=== PATIENT | female | born 1990 | race African-American/Black ===

== ENCOUNTER 2022-07-28 12:15 | Emergency (ER) | payer OTHER ==
--- OUTSIDE RECORDS SUMMARY | 2022-07-28 12:38 | XMS REPORT | Continuity of Care Document ---
:1990 Author Organization [facility] t Address [address] [place] [place] [address] Care Team Providers Name Role Phone Pcp, Patient Does Not Have A Primary Care Physician [phone] Emerson Rubio Attending Clinician Unavailable Pcp, Patient Does Not Have A Attending Clinician [phone] Vida Valenzuela RN Attending Clinician Unavailable Soha Green Attending Clinician Soha MONREAL Attending Clinician Unavailable Cecy Son Attending Clinician CECY HAMMONDS Attending Clinician Unavailable Doctor Unassigned, [place] Attending Clinician Unavailable Emerson Rubio Admitting Clinician Unavailable Physician, No Primary or Family Admitting Clinician Unavaila ble Payers Payer Name Policy Type Policy Number Effective Date Expiration Date S ource Problems Condition Condition Condition Status Onset Resolution Last Treating Co mments Source Name Details Category Date Date Treatment Clinician Date Chlamydia Chlamydia Disease Active Uni vers trachomati trachomati 3-27 it y of s s 00:00: [place] infection infection 00 Medi mahnaz of lower of lower Branch genitourin genitourin brisa sites brisa sites Tobacco Tobacco Disease Active Univers use use 24 ity of disorder disorder 00:00: [place] 00 Medical Branch Obesity Obesity Disease Active Overview: Univ ers 24 Formattin ity of 00:00: g of this [place] 00 note Medical might be Branch different from the original. ICD10 Diagnosis Term Outreach Coordinator Utility Mixed Mixed Disease Active 2006-06 Overview: Univer s bipolar I bipolar I 0-14 Formattin i ty of disorder disorder 00:00: g of this John as 00 note Medical might be Branch different from the original. ICD10 Diagnosis Term Outreach Coordinator Utility Other, Other, Disease Active 2006-06 Univers mixed, or mixed, or 0-14 ity of unspecifie [place] Medical nondepende nondepende Br anch nt drug nt drug abuse, abuse, unspecifie unspecifie d d Allergies, Adverse Reactions, Alerts Allergy Allergy Status Severity Reaction(s) Onset Inactive Treating Comm ents Source Name Type Date Date Clinician No Known DA Active U 2014-06 [facility] [place] No Known DA Active U 2014-06 [facility] - [facility] [place] NO KNOWN Drug Active Univers ALLERGIE Class ity of S [facility] Social History Social Habit [place] Date Stop Date Quantity Comments Source History SDOH University o f Alcohol Frequency [place] M edical [facility] History SDOH University o f Alcohol Std [place] Medical Drinks Branch History SDOH University o f Alcohol Binge [place] Medic al Branch Exposure to Not sure University of SARS-CoV-2 [facility] (event) Branch History of Cigarette Smoker Universi ty of tobacco use [facility] Alcohol intake 2019-12-28 2019-12-28 Current drinker Unive rsity of 00:00:00 00:00:00 of alcohol [facility] (finding) Branch Tobacco use and 2014-09-15 2014-09-15 Never used Universit y of exposure 00:00:00 00:00:[address] [facility] Alcohol Comment 2014-09-15 2014-09-15 drinks 2 beers Unive rsity of 00:00:00 00:00:[address] [facility] Tobacco Comment 2014-09-15 2014-09-15 smokes 5 Universit y of 00:00:00 00:00:00 cigarettes per [facility] Sex Assigned At [birth year] Universit y of 00:00:00 00:00:[address] [facility] Smoking Status [place] Date Stop Date Source Current every day smoker 2014-09-15 00:00:00 Uni versity [facility] Medications Ordered Filled [place] Stop Current Ordering Indication Dosage Frequency Signature Comments Components Source Medication Medication Date Date Medication? Clinician (SIG) Name Name benzonatate Yes [id number] 200mg Take 1 Univers 200 mg 9-18 capsule by ity of capsule 00:00: mouth 3 [place] (three) Medical times Branch daily as needed for Cough for up to 20 doses. ondansetron Yes [id number] 4mg Take 1 Univers (ZOFRAN 9-18 tablet by ity of ODT) 4 mg 00:00: mouth [place] disintegrat 00 every 8 Medic al ing tablet (eight) Branch hours as needed for Nausea and Vomiting (N/V). ondansetron Yes [id number] 4mg Take 1 Univers (ZOFRAN 9-18 tablet by ity of ODT) 4 mg 00:00: mouth [place] disintegrat 00 every 8 Medic al ing tablet (eight) Branch hours as needed for Nausea and Vomiting (N/V). benzonatate Yes [id number] 200mg Take 1 Univers 200 mg 9-18 capsule by ity of capsule 00:00: mouth 3 [place] (three) Medical times Branch daily as needed for Cough for up to 20 doses. ondansetron 2020- Yes [id number] 4mg Take 1 Univers (ZOFRAN 9-18 tablet by ity of ODT) 4 mg 00:00: mouth [place] disintegrat 00 every 8 Medic al ing tablet (eight) Branch hours as needed for Nausea and Vomiting (N/V). ondansetron 2020-0 Yes [id number] 4mg Take 1 Univers (ZOFRAN 9-18 tablet by ity of ODT) 4 mg 00:00: mouth [place] disintegrat 00 every 8 Medic al ing tablet (eight) Branch hours as needed for Nausea and Vomiting (N/V). ondansetron 2020- Yes [id number] 4mg Take 1 Univers (ZOFRAN 9-18 tablet by ity of ODT) 4 mg 00:00: mouth [place] disintegrat 00 every 8 Medic al ing tablet (eight) Branch hours as needed for Nausea and Vomiting (N/V). ibuprofen 2020- No [id number] 600mg Take 1 Univers 600 mg -18 -18 tablet by ity of tablet 00:00: 00:00 mouth [place] 00 :00 every 6 Medical (six) Branch hours as needed for Pain (scale 4-6). ibuprofen 2020- No [id number] 600mg Take 1 Univers 600 mg 18 -18 tablet by ity of tablet 00:00: 00:00 mouth [place] 00 :00 every 6 Medical (six) Branch hours as needed for Pain (scale 4-6). acetaminoph 2019- No 1000mg 1,000 mg, Univers en 12-27 0705 Oral, ity of (TYLENOL) 22:15: 21:27 ONCE, 1 [place] tablet 00 :00 dose, [facility] 1,000 mg 12/28/19 at Branch 1715, SEE traMADOL 2018-0 Yes 50mg Take 1 Univers (ULTRAM) 50 9-15 tablet by ity of mg tablet 00:00: mouth [place] 00 every 6 Medical (six) Branch hours as needed for Pain (scale 4-6). traMADOL 2018-0 Yes 50mg Take 1 Univers (ULTRAM) 50 9-15 tablet by ity of mg tablet 00:00: mouth [place] 00 every 6 Medical (six) Branch hours as needed for Pain (scale 4-6). traMADOL 2018-0 Yes 50mg Take 1 Univers (ULTRAM) 50 9-15 tablet by ity of mg tablet 00:00: mouth [place] 00 every 6 Medical (six) Branch hours as needed for Pain (scale 4-6). traMADOL 2018-0 Yes 50mg Take 1 Univers (ULTRAM) 50 9-15 tablet by ity of mg tablet 00:00: mouth [place] 00 every 6 Medical (six) Branch hours as needed for Pain (scale 4-6). traMADOL 2018-0 Yes 50mg Take 1 Univers (ULTRAM) 50 9-15 tablet by ity of mg tablet 00:00: mouth [place] 00 every 6 Medical (six) Branch hours as needed for Pain (scale 4-6). traMADOL 2018-0 Yes 50mg Take 1 Univers (ULTRAM) 50 9-15 tablet by ity of mg tablet 00:00: mouth [place] 00 every 6 Medical (six) Branch hours as needed for Pain (scale 4-6). traMADOL 2018-0 Yes 50mg Take 1 Univers (ULTRAM) 50 9-15 tablet by ity of mg tablet 00:00: mouth [place] 00 every 6 Medical (six) Branch hours as needed for Pain (scale 4-6). Immunizations Ordered Filled Immunization Date Status Comments [facility] e Immunization Name Name [facility] 2013-06-25 Completed University of 00:00:00 [facility] 2013-06-25 Completed University of 00:00:00 [facility] 2013-06-25 Completed University of 00:00:00 [facility] 2013-06-25 Completed University of 00:00:00 [facility] 2013-06-25 Completed University of 00:00:00 [facility] 2013-06-25 Completed University of 00:00:00 [facility] 2013-06-25 Completed University of 00:00:[address] [facility] Vital Signs Vital Name Observation Time Observation Value Comments Source Systolic blood 2021-03-12 20:25:00 125 mm[Hg] Univer sity [facility] Diastolic blood 2021-03-12 20:25:00 68 [facility]Hg] [facility] 2021-03-12 20:25:00 100 /min [facility] Body temperature 2021-03-12 20:25:00 37.5 [facility] Respiratory rate 2021-03-12 20:25:00 18 /min [facility] Body height 2021-03-12 20:25:00 160 cm [facility] Body weight 2021-03-12 20:25:00 72.576 kg [facility] BMI 2021-03-12 20:25:00 28.34 kg/m2 [facility] Oxygen saturation in 2021-03-12 20:25:00 99 /min [facility] Arterial blood by [facility] Pulse oximetry Branch Systolic blood 2019-12-28 20:47:00 113 mm[Hg] Univer sit of [facility] Branch Diastolic blood 2019-12-28 20:47:00 78 mm[Hg] Unive rsity of pressure [facility] Heart rate 2019-12-28 20:47:00 83 /min Universi ty of [facility] Body temperature 2019-12-28 20:47:00 37.17 Dina Univ ersity of [facility] Respiratory rate 2019-12-28 20:47:00 15 /min Univ ersity of [facility] Body height 2019-12-28 20:47:00 160 cm Universi ty of [facility] Body weight 2019-12-28 20:47:00 73.029 kg Universi ty of [facility] BMI 2019-12-28 20:47:00 28.52 kg/m2 Universi ty of [facility] Oxygen saturation in 2019-12-28 20:47:00 99 /min University of Arterial blood by [facility] Pulse oximetry Branch Systolic blood 2019-12-28 20:47:00 113 mm[Hg] Univer sity of pressure [facility] Diastolic blood 2019-12-28 20:47:00 78 mm[Hg] Unive rsity of pressure [facility] Heart rate 2019-12-28 20:47:00 83 /min Universi ty of [facility] Body temperature 2019-12-28 20:47:00 37.17 [facility] Univ ersity of [facility] Respiratory rate 2019-12-28 20:47:00 15 /min Univ ersity of [facility] Body height 2019-12-28 20:47:00 160 cm Universi ty of [facility] Body weight 2019-12-28 20:47:00 73.029 kg Universi ty of [facility] BMI 2019-12-28 20:47:00 28.52 kg/m2 Universi ty of [facility] Oxygen saturation in 2019-12-28 20:47:00 99 /min University of Arterial blood by [facility] Pulse oximetry Branch Procedures Procedure Date / Time Performed Performing Clinician Sour e POCT TEST 2021-03-12 20:57:00 Soha Monreal Universi ty [facility] NOTICE OF PRIVACY 2021-03-12 20:22:34 Doctor Unassigned, No Univ ersity of [facility] CONSENT/REFUSAL FOR 2021-03-12 20:22:13 Doctor Unassigned, No Un iversity of [place] DIAGNOSIS AND Name Medical Branch TREATMENT [id number] 2020-03-30 00:00[id number] 2020-03-30 00:00:00 [facility] XR TOES 2 VW LEFT 2019-12-28 21:20:57 Cecy [facility] CONSENT/REFUSAL FOR 2019-12-28 20:40:00 Doctor Unassigned, No [facility] [place] DIAGNOSIS AND Name Medical Branch TREATMENT Encounters Start End Encounter Admission Attending Care Care Encounter Source Date/Time Date/Time Type Type Clinicians Facility Department ID 2020-03-29 [facility] MAX [id number] [facility] 18:25:00 Emerson [facility] [place] 2020-03-25 Inpatient [facility] MAX [id number] [facility] 00:07:00 Emerson 82 [facility] [place] 2020-03-12 Inpatient [facility] MAX [id number] [facility] 11:28:00 Emerson 27 [facility] 2021-05-31 2021-05-31 Telephone Pcp, [facility] [id number] Univers 00:00:00 00:00:00 Patient Y HEALTH [id number] i ty of [facility] 4.2.7.2.686 John as Have A [id number] [facility] 113 Branch 2021-03-13 2021-03-13 Telephone AME Valenzuela [id number] Univers 00:00:00 00:00:00 Vida GUZMÁN [id number] it y of [facility] [id number] John as [id number] [facility] 019 Branch 2021-03-12 2021-03-12 Emergency Soha Monreal [facility] [id number] Univers 15:26:00 16:06:00 Zena Polk [id number] i ty [place]2.[place] [id number] [facility] 084 Branch 2021-03-12 2021-03-12 Emergency X RAH, K [facility] ERT [id number] Univers 15:21:00 15:21:00 ity [facility] 2019-12-28 2019-12-28 Emergency Hammonds, [facility] [id number] 15:48:42 18:08:00 Cecy Polk [id number] [place] 4.2.7.2.686 [place] [id number] [facility] 2019-12-28 2019-12-28 Emergency Hammonds, [facility] [id number] Univers 15:48:42 18:08:00 Cecy [place] [id number] i ty of [place] 4.2.7.2.686 [facility] [id number] [facility] 084 [place] 2019-12-28 2019-12-28 Emergency X HAMMONDS, [facility] ERT [id number] Univers 15:48:42 15:48:42 CECY ity [facility] 2019-12-28 2019-12-28 Orders Doctor AME [id number] Univers 00:00:00 00:00:00 Only Unassigned, ARIELLE [id number] ity of [place] [facility] 4.2.7.2.686 John [id number] [facility] 009 [place] 2019-12-28 2019-12-28 Orders Doctor AME [id number] 00:00:00 00:00:00 Only Unassigned, ARIELLE [id number] [place] [facility] 4.2.7.2.686 [id number] Results Test Description Test Time Test Comments Results Result Comments Source POCT TEST 2021-03-12 20:57:00 Test Item Value Reference Range Interpretation Comme nts POCT PREG (test code = 1605) positive On board controls acceptable with C Line (test code = 3574) present POCT PREG LOT # (test code = 3575) [id number] POCT PREG TEST DATE (test code = 3576) 06-24-2022 Lab Interpretation (test code = 49629-2) [id number] 20:57:00 Test Item Value Reference Range Interpretation Comments POCT PREG (test code = 1605) positive On board controls acceptable with present C Line (test code = 3574) POCT PREG LOT # (test code = 3575) [id number] POCT PREG TEST DATE (test 06-24-2022 code = 3576) Lab Interpretation (test code = Normal 08293-5) [facility] [id number] 10:04:00 Test Item Value Reference Range Interpretation Comments HEMOGLOBIN (test code = HGB) 10.1 g/dL 10.7-13.9 L HEMATOCRIT (test code = HCT) 29.0 % 32.1-42.1 L AG HEPATITIS B [id number] 21:54:00 Test Item Value Reference Range Interpretation Comments AG HEPATITIS B SURFACE (test code NONREACTIVE NONREACTIVE = HBSAG) IS CONSENT FORM SIGNED FOR HIV TESTING? YAB HEPATITIS C [id number] 21:54:00 Test Item Value Reference Range Interpretation Comments AB HEPATITIS C (test code = NONREACTIVE NONREACTIVE HCVAB) SIGNAL TO CUTOFF (test code = 0.04 <0.80 N CUTOFF) IS CONSENT FORM SIGNED FOR HIV TESTING? YAB [id number] 21:54:00 Test Item Value Reference Range Interpretation Comments AB TREPONEMA (test code = TREPAB) NONREACTIVE NONREACTIVE IS CONSENT FORM SIGNED FOR HIV TESTING? YAB HIV 1 21:54:00 Test Item Value Reference Range Interpretation Comments AB HIV 1 2 (test NONREACTIVE NONREACTIVE [facility] code = [id number]) 4th Gen HIV Ag/Ab Combo Screen IS CONSENT FORM SIGNED FOR HIV TESTING? YAG HEPATITIS B [id number] 21:26:00 Test Item Value Reference Range Interpretation Comments AG HEPATITIS B SURFACE (test code NONREACTIVE NONREACTIVE = HBSAG) IS CONSENT FORM SIGNED FOR HIV TESTING? YAB HEPATITIS C [id number] 21:26:00 Test Item Value Reference Range Interpretation Comments AB HEPATITIS C (test code = HCVAB) NONREACTIVE SIGNAL TO CUTOFF (test code = CUTOFF) <0.80 IS CONSENT FORM SIGNED FOR HIV TESTING? YAB [id number] 21:26:00 Test Item Value Reference Range Interpretation Comments AB TREPONEMA (test code = TREPAB) NONREACTIVE NONREACTIVE IS CONSENT FORM SIGNED FOR HIV TESTING? YAB HIV 1 21:26:00 Test Item Value Reference Range Interpretation Comments AB HIV 1 2 (test code = [id number]) NONREACTIVE IS CONSENT FORM SIGNED FOR HIV TESTING? YCBC W/AUTO [id number] 21:07:00 Test Item Value Reference Range Interpretation Comments WHITE BLOOD CELL (test 22.5 K/mm3 6.6-12.1 HH RESUL TS CALLED TO code = WBC) HERI.READ BACK & CONFIRMED?Y .BY MIGUEL ANGEL 2052.Results verified by rep eat analysis RED BLOOD CELL (test 3.27 M/mm3 3.45-5.01 L code = RBC) HEMOGLOBIN (test code = 11.0 g/dL 10.7-13.9 N HGB) HEMATOCRIT (test code = 31.9 % 32.1-42.1 L HCT) MEAN CELL VOLUME (test 98 fL 84.1-94.8 H code = MCV) MEAN CELL HGB (test code 33.6 pg 27-35 N = MCH) MEAN CELL HGB 34.5 gm/dL 32.2-34.1 H CONCETRATION (test code = MCHC) RED CELL DISTRIBUTION 12.9 % 12.4-16.5 N WIDTH (test code = RDW) PLATELET COUNT (test 280 K/mm3 133-385 N code = PLT) MEAN PLATELET VOLUME 10.9 fl 9.1-12.7 N (test code = MPV) NEUTROPHIL % (test code 75.5 % 56.5-79.4 N = NT%) LYMPHOCYTE % (test code 15.6 % 14.3-34.3 N = LY%) MONOCYTE % (test code = 7.0 % 5.1-10.4 N MO%) EOSINOPHIL % (test code 1.2 % 0.1-3.0 N = EO%) BASOPHIL % (test code = 0.2 % 0.1-1.0 N BA%) NEUTROPHIL # (test code 17.0 K/mm3 = NT#) LYMPHOCYTE # (test code 3.5 K/mm3 = LY#) MONOCYTE # (test code = 1.6 K/mm3 MO#) EOSINOPHIL # (test code 0.26 K/mm3 = EO#) BASOPHIL # (test code = 0.0 K/mm3 BA#) RBC MORPHOLOGY REQUIRED NORMAL NORMAL (test code = RBCM) PLATELET MORPHOLOGY NORMAL NORMAL REQUIRED (test code = PLTMR) COVID 19 Asymptomatic IH [id number] 20:17:00 Test Item Value Reference Range Interpretation Comments COVID 19 NEGATIVE NEGATIVE This test has b een Asymptomatic IH AG authorize d only for the (test code = detection ofpro teins from COVNONPUIAG) SARS-CoV-2, not for any other viruses orpathogens. Ne gative results should be treated as presumptive andconfirmed wi th a molecular assay , if necessary for patientmanageme nt. Negative result s do not rule out COVID- 19 andshould not b e used as the sole basis for treatment orpat ient management deci sions, including infec tion controldecision s. Negative result s should be considered i n thecontext of a patient's recent exposure s, history and thepresence of clinical signs and symptoms consis tent withCOVID-19. T his test has not been FD A cleared or approved; th e test hasbeen authoryousuf amador by FDA under an Emerge ncy Use Authorization(E UA) for use by laborato josesito certified under the CLIA thatmeet the re quirements to perform mode rate, high or waivedcomple xity tests. This enzo t is authorized for use at thePoint of Car e (POC), i.e., in patien t care settingsoperati ng under a CLIA Certificat e of Waiver, Certifi horace ofCompliance, o r Certificate of Accreditation. This test is only authori marjorie for the duration of thedeclaration that circumstances e xist justifying theauthorizatio n of emergency use o f in vitro diagnostic test sfor detection and/o r diagnosis of CO VID-19 under Valpgxe58 4(b)(1) of the Act, 21 U.S .C. 360bbb-3(b)(1), unless theauthorizatio n is terminated or r evoked sooner.
[2022-07-28] MEDS ORDERED: MORPHINE 4 MG/ML SYR ONE (13:16)
[2022-07-28] MEDS ORDERED: NA CHLORIDE 0.9% 1,000 ML ONE (13:16)
[2022-07-28] MEDS ORDERED: ONDANSETRON 4 MG/2 ML VIAL ONE (13:16)
[2022-07-28 13:32] LABS: Absolute Lymphocytes (CBC) 2.8 K/uL (0.7-4.9); Hematocrit 33.9 % (36.0-45.0); Lymphocytes % 19.1 % (15.3-44.8); MCV 98.5 fL (80-100); MPV 7.4 fL (7.6-11.3); RBC Red Blood Cell Count 3.44 M/uL (3.86-4.86)
[2022-07-28 13:45] LABS: Albumin 3.2 g/dL (3.4-5.0); Bilirubin Total 0.2 mg/dL (0.2-1.0); Potassium 3.4 mmol/L (3.5-5.1); Protein, Total 6.4 g/dL (6.4-8.2)
[2022-07-28 14:57] LABS: Urine Blood 3+ (Negative); Urine Glucose Negative (Negative); Urine Protein Trace (Negative); Urine Specific Gravity 1.025 (1.005-1.030); Urine pH 5.5 (5.0-7.0)
[2022-07-28 15:43] LABS: Urine Specific Gravity/Preg 1.025 (1.005-1.030)
--- NOTE | 2022-07-28 15:58 | RAD REPORT ---
EXAM DESCRIPTION: US - Transvaginal OB - 07/28/2022 3:45 pm CLINICAL HISTORY: with pelvic pain COMPARISON: None. FINDINGS: The uterus measures 9 x 4 x 4 centimeters. The endometrial stripe measures for millimeter s. A gestational sac is not seen. Ovaries are normal in size and echotexture.. The right and left adnexa unremarkable Small amount of fluid within the cul-de-sac containing echoes. This extends into the right adnexa. IMPRESSION: Nonvisualization of a gestational sac within the endometrium. These findings could represent an early intrauterine in which the gestational sac is not se en. ectopic can also result in this appearance. This all should be correlated cli nically and with serial beta HCG levels. Followup endovaginal sonogram in 1 week recommended Small amount of blood suspected within the cul-de-sac and right adnexa
[2022-07-28] MEDS ORDERED: ACETAMINOPHEN 500 MG TAB ONE (16:22)
--- NOTE | 2022-07-28 19:25 | ER ---
Nurse's Notes [facility] Name: Nieves Watkins Age: 32 yrs Sex: Female : 1990 Arrival Date: 07/28/2022 Time: 12:16 Bed 16 Private MD: Diagnosis: Other ectopic without intrauterine Presentation: 07/28 12:30 Chief complaint: Patient states: my abdomen hurts so bad, i cant concentrate, I cant ko1 breathe it hurts so bad. Coronavirus screen: At this time, the client does not indicate any symptoms associated with coronavirus-19. Ebola Screen: No symptoms or risks identified at this time. Initial Sepsis Screen: Does the patient meet any 2 criteria? No. Patient's initial sepsis screen is negative. Does the patient have a suspected source of infection? No. Patient's initial sepsis screen is negative. Risk Assessment: Do you want to hurt yourself or someone else? Patient reports no desire to harm self or others. Onset of symptoms was July 28, 2022. 12:30 Method Of Arrival: Wheelchair ko1 12:30 Acuity: SHAMIR 2 ko1 Triage Assessment: 12:32 General: Appears distressed, uncomfortable, Behavior is calm, cooperative, appropriate ko1 for age. Pain: Complains of pain in abdomen. GI: Reports lower abdominal pain, upper abdominal pain. 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 - Social history:: Smoking status: Patient reports the use of cigarette tobacco products, smokes one-half pack cigarettes per day, Reported history of juuling and/or vaping. Screenin:00 [facility] ED Fall Risk Assessment (Adult) History of falling in the last 3 months, eh3 including since admission No falls in past 3 months (0 pts) Confusion or Disorientation No (0 pts) Intoxicated or Sedated No (0 pts) Impaired Gait No (0 pts) Mobility Assist Device Used No (0 pt) Altered Elimination No (0 pt) Score/Fall Risk Level 0 - 2 = Low Risk. Abuse screen: Denies threats or abuse. Denies injuries from another. Nutritional screening: No deficits noted. Tuberculosis screening: No symptoms or risk factors identified. Assessment: 13:00 General: Appears distressed, uncomfortable, Behavior is cooperative, appropriate for eh3 age, anxious. Pain: Complains of pain in abdomen and pelvis Pain currently is 10 out of 10 on a pain scale. Quality of pain is described as pressure, squeezing, Pain began 4 hours ago. Is continuous, Alleviated by rest, heat application, Aggravated by increased activity, weight bearing, Noted to be grimacing, guarding, resistant to movement. Neuro: Level of Consciousness is awake, alert, obeys commands, Oriented to person, place, time, situation. Cardiovascular: Capillary refill < 3 seconds Patient's skin is warm and dry. Respiratory: Airway is patent Respiratory effort is even, unlabored, Respiratory pattern is regular, symmetrical. GI: Abdomen is round non-distended, Bowel sounds present X 4 quads. Abd is soft X 4 quads Abdomen is tender to palpation in right lower quadrant and left lower quadrant Guarding noted. : No signs and/or symptoms were reported regarding the genitourinary system. EENT: No signs and/or symptoms were reported regarding the EENT system. Derm: No signs and/or symptoms reported regarding the dermatologic system. Skin is pink, warm \T\ dry. Musculoskeletal: No signs and/or symptoms reported regarding the musculoskeletal system. Circulation, motion, and sensation intact. Range of motion: intact in all extremities. 13:30 Reassessment: Patient and/or family updated on plan of care and expected duration. Pain eh3 level reassessed. Patient is alert, oriented x 3, equal unlabored respirations, skin warm/dry/pink. 14:30 Reassessment: Patient appears in no apparent distress at this time. Patient and/or eh3 family updated on plan of care and expected duration. Pain level reassessed. Patient is alert, oriented x 3, equal unlabored respirations, skin warm/dry/pink. Patient states symptoms have improved. 15:30 Reassessment: Patient appears in no apparent distress at this time. Patient and/or eh3 family updated on plan of care and expected duration. Pain level reassessed. Patient is alert, oriented x 3, equal unlabored respirations, skin warm/dry/pink. 16:30 Reassessment: Patient appears in no apparent distress at this time. Patient and/or eh3 family updated on plan of care and expected duration. Pain level reassessed. Patient is alert, oriented x 3, equal unlabored respirations, skin warm/dry/pink. 17:30 Reassessment: Patient appears in no apparent distress at this time. Patient and/or eh3 family updated on plan of care and expected duration. Pain level reassessed. Patient is alert, oriented x 3, equal unlabored respirations, skin warm/dry/pink. 17:30 Reassessment: Lab notified of Rhogam order, awaiting paperwork to receive Rhogam. 3 18:30 Reassessment: Patient appears in no apparent distress at this time. Patient and/or eh3 family updated on plan of care and expected duration. Pain level reassessed. Patient is alert, oriented x 3, equal unlabored respirations, skin warm/dry/pink. 19:30 Reassessment: Patient appears in no apparent distress at this time. Patient and/or eh3 family updated on plan of care and expected duration. Pain level reassessed. Patient is alert, oriented x 3, equal unlabored respirations, skin warm/dry/pink. Pt aware of 1.5 hour wait for methotrexate. 20:30 Reassessment: Patient appears in no apparent distress at this time. Patient and/or eh3 family updated on plan of care and expected duration. Pain level reassessed. Patient is alert, oriented x 3, equal unlabored respirations, skin warm/dry/pink. Vital Signs: 12:30 BP 136 / 88; Pulse 80; Resp 20; Temp 97.5; Pulse Ox 100% ; Weight 72.57 kg; Height 5 ko1 ft. 3 in. (160.02 cm); Pain 10/10; 13:30 BP 113 / 60; Pulse 65; Resp 18; Pulse Ox 100% on R/A; eh3 14:30 BP 117 / 72; Pulse 61; Resp 18; Pulse Ox 99% on R/A; eh3 15:30 BP 100 / 85; Pulse 73; Resp 16; Pulse Ox 100% on R/A; eh3 16:30 BP 106 / 71; Pulse 64; Resp 16; Pulse Ox 96% on R/A; eh3 17:30 BP 104 / 79; Pulse 55; Resp 18; Pulse Ox 98% on R/A; eh3 18:30 BP 109 / 61; Pulse 57; Resp 16; Pulse Ox 98% on R/A; eh3 19:30 BP 103 / 65; Pulse 63; Resp 18; Pulse Ox 100% on R/A; eh3 12:30 Body Mass Index 28.34 (72.57 kg, 160.02 cm) ko1 ED Course: 12:16 Patient arrived in ED. am2 12:16 Geraldine French FNP-C is [facility]. kb 12:16 Juan Miguel Hull MD is Attending Physician. kb 12:31 Triage completed. ko1 12:32 Arm band placed on right wrist. Patient placed in waiting room, Patient notified of ko1 wait time Patient's private physician notified. 13:00 Patient has correct armband on for positive identification. Bed in low position. Call eh3 light in reach. Side rails up X2. Adult w/ patient. Client placed on continuous cardiac and pulse oximetry monitoring. NIBP monitoring applied. Door closed. Noise minimized. Lights dimmed. Warm blanket given. 13:08 Tracey Khan, RN is Primary Nurse. eh3 13:21 Inserted saline lock: 20 gauge in left antecubital area, using aseptic technique. Blood zm collected. 13:22 CBC with Diff Sent. zm 13:22 CMP Sent. zm 13:22 Lipase Sent. zm 15:43 US Transvaginal Ob In Process Unspecified. EDMS 17:15 Assist provider with pelvic exam: Performed by Geraldine LAM Patient tolerated jl7 well. 19:24 Willy Navarrete MD is Referral Physician. kb 20:53 IV discontinued, intact, bleeding controlled, No redness/swelling at site. Pressure eh3 dressing applied. Administered Medications: 13:31 Drug: NS 0.9% 1000 ml Route: IV; Rate: 1 bolus; Site: left antecubital; eh3 14:30 Follow up: IV Status: Completed infusion; IV Intake: 1000ml eh3 13:31 Drug: Zofran (Ondansetron) 4 mg Route: IVP; Site: left antecubital; eh3 14:30 Follow up: Response: No adverse reaction eh3 13:31 Drug: morphine 4 mg Route: IVP; Infused Over: 4 mins; Site: left antecubital; eh3 14:30 Follow up: Response: Pain is decreased eh3 16:25 Drug: Tylenol 1000 mg Route: PO; eh3 17:20 Follow up: Response: Pain is decreased eh3 19:15 Drug: RhoGAM (Human) 300 mcg Route: IM; Site: left ventrogluteal; eh3 20:52 Follow up: Response: No adverse reaction eh3 20:44 Drug: Methotrexate 75 mg Route: IM; Site: right ventrogluteal; eh3 20:52 Follow up: Response: No adverse reaction eh3 Medication: 20:53 VIS not applicable for this client. eh3 Intake: 14:30 IV: 1000ml; Total: 1000ml. eh3 Outcome: 19:24 Discharge ordered by . ayde 20:53 Condition: stable eh3 20:53 Discharge instructions given to patient, significant other, Instructed on discharge instructions, follow up and referral plans. Demonstrated understanding of instructions, follow-up care. 20:54 Discharged to home ambulatory, with significant other. eh3 20:54 Patient left the ED. eh3 Signatures: Dispatcher [employer] EDMS Geraldine French, GENARO ALVAREZ-Hiwot Mcelroy RN RN jl7 Shari Otto am2 Tracey Khan RN RN eh3 Fartun Carter Kathy, RN RN ko1 Corrections: (The following items were deleted from the chart) 15:05 12:40 General: Appears distressed, uncomfortable, Behavior is cooperative, appropriate eh3 for age, anxious, eh3 15:05 12:40 Pain: Complains of pain in abdomen and pelvis Pain currently is 10 out of 10 on a eh3 pain scale. Quality of pain is described as pressure, squeezing, Pain began 4 hours ago. Is continuous, Alleviated by rest, heat application, Aggravated by increased activity, weight bearing, Noted to be grimacing, guarding, resistant to movement, eh3 15:05 12:40 Neuro: Level of Consciousness is awake, alert, obeys commands, Oriented to 3 person, place, time, situation, eh3 15:05 12:40 Cardiovascular: Capillary refill < 3 seconds Patient's skin is warm and dry. eh3 eh3 15:05 12:40 Respiratory: Airway is patent Respiratory effort is even, unlabored, Respiratory eh3 pattern is regular, symmetrical, eh3 15:05 12:40 GI: Abdomen is round non-distended, Bowel sounds present X 4 quads. Abd is soft X eh3 4 quads Abdomen is tender to palpation in right lower quadrant and left lower quadrant Guarding noted eh3 15: 12:40 : No signs and/or symptoms were reported regarding the genitourinary system. eh33 15: 12:40 EENT: No signs and/or symptoms were reported regarding the EENT system. eh3 eh3 15: 12:40 Derm: No signs and/or symptoms reported regarding the dermatologic system. Skin eh3 is pink, warm \T\ dry. 3 15: 12:40 Musculoskeletal: No signs and/or symptoms reported regarding the musculoskeletal 3 system. Circulation, motion, and sensation intact. Range of motion: intact in all extremities, 3
--- NOTE | 2022-07-28 19:25 | EDPHYS ---
Physician Documentation [facility] Name: Nieves Watkins Age: 32 yrs Sex: Female : 1990 Arrival Date: 07/28/2022 Time: 12:16 Bed 16 Private MD: ED Physician Juan Miguel Hull HPI: 07/28 14:15 This 32 yrs old Black Female presents to ER via Wheelchair with complaints of Abdominal kb Pain, Vaginal Bleeding. 14:15 The patient presents with abdominal pain that is diffuse. Onset: The symptoms/episode kb began/occurred today. The symptoms do not radiate. Associated signs and symptoms: Pertinent positives: vaginal bleeding. The symptoms are described as constant. Modifying factors: The symptoms are alleviated by nothing, the symptoms are aggravated by pressure. Severity of pain: At its worst the pain was moderate in the emergency department the pain is unchanged. The patient has not experienced similar symptoms in the past. The patient has not recently seen a physician. Patient reports diffuse abdominal pain that started today. Reports vaginal bleeding for 2 weeks. Denies fever, nausea, vomiting.. 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 - Social history:: Smoking status: Patient reports the use of cigarette tobacco products, smokes one-half pack cigarettes per day, Reported history of juuling and/or vaping. ROS: 14:14 Constitutional: Negative for fever, chills, and weight loss. kb 14:14 Abdomen/GI: Positive for abdominal pain. 14:14 : Positive for vaginal bleeding. 14:14 All other systems are negative. Exam: 14:14 Constitutional: This is a well developed, well nourished patient who is awake, alert, kb and in no acute distress. Head/Face: Normocephalic, atraumatic. ENT: Moist Mucous membranes Cardiovascular: Regular rate and rhythm with a normal S1 and S2. No gallops, murmurs, or rubs. No pulse deficits. Respiratory: Respirations even and unlabored. No increased work of breathing. Talking in full sentences Skin: Warm, dry with normal turgor. Normal color. MS/ Extremity: Pulses equal, no cyanosis. Neurovascular intact. Full, normal range of motion. Neuro: Awake and alert, GCS 15, oriented to person, place, time, and situation. Moves all extremities. Normal gait. Psych: Awake, alert, with orientation to person, place and time. Behavior, mood, and affect are within normal limits. 14:14 Abdomen/GI: Inspection: abdomen appears normal, Bowel sounds: normal, Palpation: soft, in all quadrants, moderate abdominal tenderness, in all quadrants. Vital Signs: 12:30 BP 136 / 88; Pulse 80; Resp 20; Temp 97.5; Pulse Ox 100% ; Weight 72.57 kg; Height 5 ko1 ft. 3 in. (160.02 cm); Pain 10/10; 13:30 BP 113 / 60; Pulse 65; Resp 18; Pulse Ox 100% on R/A; eh3 14:30 BP 117 / 72; Pulse 61; Resp 18; Pulse Ox 99% on R/A; eh3 15:30 BP 100 / 85; Pulse 73; Resp 16; Pulse Ox 100% on R/A; eh3 16:30 BP 106 / 71; Pulse 64; Resp 16; Pulse Ox 96% on R/A; eh3 17:30 BP 104 / 79; Pulse 55; Resp 18; Pulse Ox 98% on R/A; eh3 18:30 BP 109 / 61; Pulse 57; Resp 16; Pulse Ox 98% on R/A; eh3 19:30 BP 103 / 65; Pulse 63; Resp 18; Pulse Ox 100% on R/A; eh3 12:30 Body Mass Index 28.34 (72.57 kg, 160.02 cm) ko1 MDM: 12:17 Patient medically screened. kb 14:14 Differential diagnosis: appendicitis, Dysmenorrhea, gastritis, non-specific abd pain. kb Data reviewed: vital signs, nurses notes. 18:19 ED course: Dr. Navarrete at bedside. kb 18:54 ED course: Beta Hcg >3000 with no IUP seen on ultrasound. Given abd pain and no IUP kb there is concern for ectopic . Dr Navarrete, OB, consulted, we discussed case findings and management and he agrees that pt should be treated as ectopic and recommends Methotrexate be given in the ED. Dr Navarrete came to bedside and discussed treatment options and consented pt for methotrexate. Pt and significant other in agreement with plan. Pt will receive methotrexate dose today and will follow up with Dr Navarrete in his office on Sunday. Pt is rh negative and will receive rhogam as well. . 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 kb Counseling: I had a detailed discussion with the patient and/or guardian regarding: the historical points, exam findings, and any diagnostic results supporting the discharge/admit diagnosis, lab results, radiology results, the need for outpatient follow up, Dr Navarrete on Sunday. 19:24 ED course: Pain is controlled after treatment. kb 07/28 12:31 Order name: CBC with Diff; Complete Time: 13:36 kb 07/28 12:31 Order name: CMP; Complete Time: 13:48 kb 07/28 12:31 Order name: Lipase; Complete Time: 13:48 kb 07/28 14:57 Order name: Urine Dipstick-Ancillary; Complete Time: 14:58 EDOH 07/28 14:57 Order name: HCG-Quantitative; Complete Time: 17:05 kb 07/28 14:57 Order name: Abo/rh Typing 07/28 14:57 Order name: US Transvaginal Ob; Complete Time: 15:59 kb 07/28 15:00 Order name: Urine --Ancillary (enter results); Complete Time: 15:59 eb 07/28 18:19 Order name: Rh Typing [facility] 07/28 18:19 Order name: Antibody Screen [facility] 07/28 18:19 Order name: Fetalscreen [facility] 07/28 18:19 Order name: Cord Rh type [facility] 07/28 18:19 Order name: Rhogam [facility] 07/28 12:31 Order name: IV Saline Lock; Complete Time: 13:21 kb 07/28 12:31 Order name: Labs collected and sent; Complete Time: 13:21 kb 07/28 12:31 Order name: Urine Dipstick-Ancillary (obtain specimen); Complete Time: 14:58 kb 07/28 12:31 Order name: Urine Test (obtain specimen); Complete Time: 14:58 kb Administered Medications: 13:31 Drug: NS 0.9% 1000 ml Route: IV; Rate: 1 bolus; Site: left antecubital; eh3 14:30 Follow up: IV Status: Completed infusion; IV Intake: 1000ml eh3 13:31 Drug: Zofran (Ondansetron) 4 mg Route: IVP; Site: left antecubital; eh3 14:30 Follow up: Response: No adverse reaction eh3 13:31 Drug: morphine 4 mg Route: IVP; Infused Over: 4 mins; Site: left antecubital; eh3 14:30 Follow up: Response: Pain is decreased eh3 16:25 Drug: Tylenol 1000 mg Route: PO; eh3 17:20 Follow up: Response: Pain is decreased eh3 19:15 Drug: RhoGAM (Human) 300 mcg Route: IM; Site: left ventrogluteal; eh3 20:52 Follow up: Response: No adverse reaction eh3 20:44 Drug: Methotrexate 75 mg Route: IM; Site: right ventrogluteal; eh3 20:52 Follow up: Response: No adverse reaction eh3 Disposition: 07/29 07:17 Co-signature as Attending Physician, Juan Miguel Hull MD I reviewed the patient's care rn provided by the Advanced Practice Provider and agree with the diagnosis and treatment plan. Disposition Summary: 07/28/22 19:24 Discharge Ordered Location: Home kb Condition: Stable kb Diagnosis - Other ectopic without intrauterine kb Followup: kb - With: Emergency Department - When: As needed - Reason: Worsening of condition Followup: kb - With: Willy Navarrete MD - When: 1 - 2 days - Reason: Recheck today's complaints, Continuance of care Discharge Instructions: - Discharge Summary Sheet kb - Methotrexate Treatment for an Ectopic kb - Ectopic , [id number] kb Forms: - Medication Reconciliation Form kb - Thank You Letter kb - Antibiotic Education kb - Prescription Opioid Use kb Signatures: Dispatcher [employer] EDGeraldine Loza FNP-Rhys VILLASENORP-Juan Miguel Brunson MD MD rn Hall, Erin RN RN eh3 Viktoriya Camacho, RN RN ko1 Corrections: (The following items were deleted from the chart) 07/28 15:01 12:32 Abdomen Pelvis W Con+CT.RAD.BRZ ordered. EDMS EDMS
[2022-07-28] MEDS ORDERED: METHOTREXATE 75 MG/3 ML SYR IM ONE (21:00)
[2022-07-28 21:13] VITALS: TEMP 97.5
[2022-07-28 21:22] VITALS: BP 103/65; O2SAT 100
--- NOTE | 2022-07-28 22:11 | CON ---
A 32-year-old female has 5 living pregnancies, no miscarriages. No history of STD. Last child was 2 years old. She has been doing nothing for control, but has been spotting and bleeding off and on now for 2-3 weeks. Came into the emergency room tonight reporting bleeding and discomfort. Bleeding is actually only brownish discharge at this point. Patient says she has not done a test at home even though she was doing nothing for control. She is Rh negative and RhoGAM has been ordered regardless of what she decides about methotrexate and she agrees. She needs to get the RhoGAM of course. She has been here for over 6 hours, was given morphine initially, but that has worn off and she is alert and completely cogent at this point in time. We discussed her ultrasound, which does not demonstrate conclusively a tubal nor does it show an intrauterine . There is no significant amount of free fluid. Patient has no shoulder and neck pain. She is not in any discomfort at this point at all nor is she bleeding. She knows that with a positive test, she is obviously , but the location of the cannot being ascertained with any certainty at this point. Her quantitative level is 3119. Her vital signs are all stable. She has no complaints or problems at this point. She and her significant other were involved in the conversation with myself as to what her options are. Basically, she knows she needs RhoGAM regardless of what she decides about methotrexate She has been offered methotrexate and knows that if she gets methotrexate, she needs to follow up with quantitative serial HCG levels until the level is down to basically 0. She knows that if she has an intrauterine , this could cause the demise of an intrauterine or if no demise occurs, it could cause significant defects. She was also given the option tonight where she herself has expressed of possibly just waiting until Sunday getting a second opinion at [facility] in [place] where she lives and an ultrasound and quantitative followup there. The possibility between now and then, she could have a tubal rupture was discussed. She knows there is no way that that can be predicted. She will let the nurses know what she wants to do in followup. Apparently, I delivered her first 2 babies, so she is familiar with me. I told her that I might be retiring though in the next week or 2 and I would be happy to follow up with her, but it is probably better to seek care from somebody that she will see in the future on a long-term basis. However, whichever way she goes, I will comply with her wishes. At this point, we have a positive test, bleeding which is minimal, rh negative, RhoGAM is pending. Options discussed including expectant management versus methotrexate in followup from that administration. NICA/JAK Voice ID: [id number] Report ID: [id number] LILIAN
== END 2022-07-28 20:54 | disposition home or self-care (01) ==
LOC: ER 12:15
DX: O00.80 Other ectopic pregnancy without intrauterine pregnancy (principal); F17.210 Nicotine dependence, cigarettes, uncomplicated
CPT/HCPCS: 96361; 85025; 36415; 86900; 86850; 81025; 85461; 86901 ×2; 84702; 81003; 83690; 80053; 76817; 96375; 96372; 96374; 99284; J2790; J9260; J7030; J2405

== ENCOUNTER → 2023-08-12 | Emergency (ER) | payer OTHER, SELFPAY ==
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
[2023-08-12 02:41] VITALS: BP 124/90; TEMP 97.8; O2SAT 100
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
== END ==
LOC: ER 00:55
DX: S01.01XA Laceration without foreign body of scalp, initial encounter (principal)
CPT/HCPCS: 70450